=== PATIENT | female | born 1960 | race Two or more races ===

== ENCOUNTER 2019-12-26 14:31 | Outpatient (CLI) | payer MEDICAID ==
--- NOTE | 2019-12-26 16:45 | Consultation ---
DATE OF CONSULTATION: 12/26/2019 CONSULTING PHYSICIAN: Alli Ramirez MD CHIEF COMPLAINT: Abdominal pain. HISTORY OF PRESENT ILLNESS: This is a very pleasant 59-year-old female with numerous medical problems, which I will dictate in a second, complained of abdominal pain, who was admitted to [facility] in August. Had endoscopy, colonoscopy, ultrasound, CT, and none of them were diagnostic or any cause of abdominal pain. Patient had some gastritis based on endoscopy. H. pylori negative. Patient was told that she has intestinal metaplasia, but patient was told to follow up with GI as an outpatient. PAST MEDICAL HISTORY: 1. Asthma. 2. History of . 3. GERD. 4. Depression. PAST SURGICAL HISTORY: Hysterectomy. MEDICATIONS: Please see medication reconciliation list. FAMILY HISTORY: Mother had breast cancer. SOCIAL HISTORY: Patient denies any tobacco, alcohol, or drug use. ALLERGIES: No known drug allergies. REVIEW OF SYSTEMS: A 10-point review of systems was performed and pertinent positives in HPI. PHYSICAL EXAMINATION: VITAL SIGNS: Temperature 97.7. Vital signs stable. HEENT: Normocephalic and atraumatic. Sclerae anicteric. NECK: Supple. No evidence of obvious lymphadenopathy. CARDIOVASCULAR: Regular rate and rhythm. Plus S1 and S2. LUNGS: Clear to auscultation bilaterally. ABDOMEN: Soft and nontender. No rebound. No guarding. No peritoneal sign. EXTREMITIES: No cyanosis. No clubbing. No edema. ASSESSMENT AND PLAN: This is a 59-year-old female with recent endoscopy and colonoscopy at [facility], complained of abdominal pain, improved with omeprazole once a day, but she wants it more twice a day. She thinks twice a day will help more. No hematemesis. No weight loss. Again, as I mentioned, she already had a workup including ultrasound, CT, EGD, colonoscopy in August at [facility]. Plan to increase the omeprazole to twice a day and come back next year for possible repeat endoscopy. Alli Ramirez M.D. DR: ELO JOB#: [id number] CC:
== END 2019-12-26 16:31 | disposition home or self-care (01) ==
LOC: PAN 14:31
DX: R10.9 Unspecified abdominal pain (principal); K21.9 Gastro-esophageal reflux disease without esophagitis; F32.9 Major depressive disorder, single episode, unspecified; Z90.710 Acquired absence of both cervix and uterus; Z85.3 Personal history of malignant neoplasm of breast
CPT/HCPCS: G0463